=== PATIENT | male | born 1955 | race Hispanic/Latino ===

== ENCOUNTER 2025-07-22 07:35 | Emergency (ER) | payer MEDICARE ==
[~2025-07-22] VITALS: Ht 160 cm; Wt 86.2 kg
[2025-07-22 07:40] VITALS: TEMP 98.7
[2025-07-22 08:24] LABS: BASOPHILS % 0.4 % (0.0-1.0); EOSINOPHILS % 4.1 % (0.0-6.0); LYMPHOCYTES % 27.7 % (18.0-39.1); MONOCYTES % 5.8 % (4.4-11.3); NEUTROPHILS % 61.1 % (38.7-80.0); RED CELL DISTRIBUTION WIDTH 13.6 % (11.7-14.4)
[2025-07-22] MEDS: ONDANSETRON HCL INJ 2MG/ML 2ML 2 MG/ML VIAL IV STA (08:41)
[2025-07-22] MEDS: SODIUM CHLORIDE 0.9% 500ML 500 ML IV ONE (08:44)
[2025-07-22 08:56] LABS: EST GLOMERULAR FILTRATION RATE 67.0 ML/MIN (>=60)
[2025-07-22 09:01] LABS: INR 0.98
[2025-07-22 09:30] VITALS: PULSE 68; RESP 20; O2SAT 99
== END 2025-07-22 09:55 | disposition other institution (70) ==
LOC: ER 07:49
DX: S01.01XA Laceration without foreign body of scalp, initial encounter (principal); W10.8XXA Fall (on) (from) other stairs and steps, initial encounter; Y93.01 Activity, walking, marching and hiking; Y92.89 Other specified places as the place of occurrence of the external cause; R11.2 Nausea with vomiting, unspecified; I10 Essential (primary) hypertension; E78.5 Hyperlipidemia, unspecified
CPT/HCPCS: 36415; 70450; 71045; 72125; 80053; 85025; 85610; 85730; 93005; 99284; J2405; J7040